=== PATIENT | female | born 1950 | race Caucasian/White ===

== ENCOUNTER 2016-06-11 13:07 | Observation (INO) | payer MEDICARE, BC ==
[2016-06-11] VITALS (8 sets, daily range): BP systolic 102–159; BP diastolic 54–84; PULSE 72–89; RESP 14–18; TEMP 96.7–98; O2SAT 95–100
[~2016-06-11] VITALS: Ht 157.5 cm; Wt 54.4 kg
[~2016-06-11 13:07] MED LIST: ASPI81TA82 PO; CALCCHW25 PO; DENO60P SC; HYDR15TA PO; LORTA5; PROM25SU8 PO; PROM25TA5 PO; REST0.05 OU; SYNT50TA PO
[2016-06-11] MEDS ORDERED: PLAQ200T PO (13:26)
[2016-06-11] MEDS ORDERED: ASPI81CH CHEW (13:26)
[2016-06-11] MEDS ORDERED: LEVO.05 PO (13:26)
[2016-06-11] MEDS ORDERED: SODIUM CHLORID 0.9% 500 ML INJ 500 ML IV ONE (13:45)
[2016-06-11] MEDS ORDERED: SODIUM CHLORIDE 0.9% FLUSH 5 ML FLUSH IVF PRN ×2 (13:45→15:00)
[2016-06-11 13:49] LABS: AUTOMATED NEUTROPHIL # 4.5 TH/MM3 (1.8-7.7); BASOPHIL # 0.1 TH/MM3 (0-0.2); BASOPHIL % 0.9 % (0.0-2.0); EOSINOPHIL % 0.5 % (0.0-4.0); HEMATOCRIT 41.6 % (35.0-46.0); HEMO FLAGS DIFF FINAL; LYMPHOCYTE # 1.8 TH/MM3 (1.0-4.8); MEAN CELL VOLUME 88.6 FL (80.0-100.0); MEAN CORPUSCULAR HEMOGLOBIN 29.8 PG (27.0-34.0); MEAN CORPUSCULAR HGB CONC 33.7 % (32.0-36.0); MONO % 5.4 % (0.0-8.0); NEUT % 66.2 % (16.0-70.0); PLATELET COUNT 183 TH/MM3 (150-450); RED BLOOD COUNT 4.69 MIL/MM3 (4.00-5.30); RED CELL DISTRIBUTION WIDTH 12.8 % (11.6-17.2); WHITE BLOOD COUNT 6.8 TH/MM3 (4.0-11.0)
[2016-06-11] MEDS: NITROGLYCERIN 0.4 MG SL 25 TABS/BTL SL SCH ×2 (13:49→13:55)
--- NOTE | 2016-06-11 13:50 | RADHPO ---
EXAM DATE/TIME: 06/11/2016 13:43 [place] COMPARISON: No previous studies available for comparison. INDICATIONS : Chest pains, bilateral arm tingling, today MEDICAL HISTORY : None. SURGICAL HISTORY : None. ENCOUNTER: Initial ACUITY: 1 day PAIN SCORE: 8/10 LOCATION: Bilateral chest FINDINGS: A single view of the chest demonstrates the lungs to be symmetrically aerated without evidence of mas s, infiltrate or effusion. The cardiomediastinal contours are unremarkable. Osseous structures are intact. CONCLUSION: No acute disease. Doug Villegas MD on June 11, 2016 at 13:48 Board Certified Radiologist. This report was verified electronically.
[2016-06-11 13:53] LABS: CHLORIDE 105 MEQ/L (98-107); POTASSIUM 4.3 MEQ/L (3.5-5.1); SODIUM (NA) 143 MEQ/L (136-145)
[2016-06-11 13:57] LABS: ANION GAP 8 MEQ/L (5-15); BLOOD UREA NITROGEN 15 MG/DL (7-18); MAGNESIUM 2.1 MG/DL (1.5-2.5)
[2016-06-11 14:00] LABS: ALT (GPT) 26 U/L (10-53); AST (GOT) 21 U/L (15-37); GLOMERULAR FILTRATION RATE 90 ML/MIN (>89)
[2016-06-11 14:02] LABS: TOTAL BILIRUBIN ADULT 0.3 MG/DL (0.2-1.0)
[2016-06-11 14:03] LABS: ALKALINE PHOSPHATASE 80 U/L (45-117)
[2016-06-11 14:22] LABS: APTT (PATIENT) 25.7 SEC (24.3-30.1); PROTHROMBIN TIME - PATIENT 10.6 SEC (9.8-11.6)
--- NOTE | 2016-06-11 14:26 | PD ---
HPI Chief Complaint: Chest Pain Time Seen by Provider: 13:36 Travel History International Travel<30 days: No Contact w/Intl Traveler<30days: No Traveled to known affect area: No History of Present Illness HPI To 65-year-old with a history of Sjogren's disease and hypothyroidism who presents to the emergency department after she woke up today with gradual onset of pressure-like chest discomfort and tightness in her chest. She states she's had similar symptoms one time about 5 years ago where she had a cardiac workup and was thought that she had esophageal spasms. She states since onset of symptoms been constant, gradually worsening, and associated with shortness of breath. She also states that she's noticed pain to needles and tingling in her arms, as well as a little bit around her mouth and in her legs. She's also had associated nausea. No aggravating or alleviating factors. No other complaints. History Past Medical History Narrative Medical Sjogren's, hypothyroidism Tetanus Vaccination: > 5 Years Influenza Vaccination: No Social History Alcohol Use: No Tobacco Use: No Allergies-Medications (Allergen,Severity, Reaction): Uncoded Allergies: NEUROXIN (Allergy, Mild, Hives, 06/11/16) Reported Meds & Prescriptions Reported Meds & Active Scripts Active Reported Synthroid (Levothyroxine Sodium) 50 Mcg Tab 50 Mcg PO DAILY Plaquenil (Hydroxychloroquine Sulfate) 200 Mg Tab 200 Mg PO BID Take with food Aspirin 81 Mg Chew 81 Mg CHEW ONCE Review of Systems Except as stated in HPI: all other systems reviewed are Neg Physical Exam Narrative GENERAL: Well-appearing 65-year-old woman, no acute distress. SKIN: Warm and dry. CARDIOVASCULAR: Regular rate and rhythm. No murmur appreciated. RESPIRATORY: No accessory muscle use. Clear to auscultation. Breath sounds equal bilaterally. GASTROINTESTINAL: Abdomen soft, non-tender, nondistended. Hepatic and splenic margins not palpable. MUSCULOSKELETAL: No obvious deformities. No edema. NEUROLOGICAL: Awake and alert. No obvious cranial nerve deficits. Motor grossly within normal limits. Normal speech. PSYCHIATRIC: Appropriate mood and affect; insight and judgment normal. Data Data Last Documented VS Vital Signs Date Time Temp Pulse Resp B/P Pulse Ox O2 Delivery O2 Flow Rate FiO2 06/11/16 13:58 97 Nasal Cannula 2 06/11/16 13:54 83 16 115/64 06/11/16 13:15 98.0 Orders Electrocardiogram (06/11/16 13:36) Complete Blood Count With Diff (06/11/16 13:36) Comprehensive Metabolic Panel (06/11/16 13:36) D-Dimer (06/11/16 13:36) Magnesium (Mg) (06/11/16 13:36) Prothrombin Time / Inr (Pt) (06/11/16 13:36) Act Partial Throm Time (Ptt) (06/11/16 13:36) Troponin I (06/11/16 13:36) Chest, Single Ap (06/11/16 13:36) Ecg Monitoring (06/11/16 13:36) Bilateral Bp Monitoring (06/11/16 13:36) Iv Access Insert/Monitor (06/11/16 13:36) Oximetry (06/11/16 13:36) Oxygen Administration (06/11/16 13:36) Sodium Chloride 0.9% Flush (Ns Flush) (06/11/16 13:45) Nitroglycerin Sl (Nitrostat Sl) (06/11/16 13:45) Sodium Chlorid 0.9% 500 Ml Inj (Ns 500 M (06/11/16 13:45) Nitroglycerin 2% Oint (Nitroglycerin 2% (06/11/16 14:45) Admit Order (Ed Use Only) (06/11/16 ) Labs Laboratory Tests Test 06/11/16 13:30 White Blood Count 6.8 TH/MM3 Red Blood Count 4.69 MIL/MM3 Hemoglobin 14.0 GM/DL Hematocrit 41.6 % Mean Corpuscular Volume 88.6 FL Mean Corpuscular Hemoglobin 29.8 PG Mean Corpuscular Hemoglobin 33.7 % Concent Red Cell Distribution Width 12.8 % Platelet Count 183 TH/MM3 Mean Platelet Volume 8.7 FL Neutrophils (%) (Auto) 66.2 % Lymphocytes (%) (Auto) 27.0 % Monocytes (%) (Auto) 5.4 % Eosinophils (%) (Auto) 0.5 % Basophils (%) (Auto) 0.9 % Neutrophils # (Auto) 4.5 TH/MM3 Lymphocytes # (Auto) 1.8 TH/MM3 Monocytes # (Auto) 0.4 TH/MM3 Eosinophils # (Auto) 0.0 TH/MM3 Basophils # (Auto) 0.1 TH/MM3 CBC Comment DIFF FINAL Differential Comment Prothrombin Time 10.6 SEC Prothromb Time International 1.0 RATIO Ratio Activated Partial 25.7 SEC Thromboplast Time D-Dimer Quantitative (PE/DVT) 0.29 MG/L FEU Sodium Level 143 MEQ/L Potassium Level 4.3 MEQ/L Chloride Level 105 MEQ/L Carbon Dioxide Level 30.0 MEQ/L Anion Gap 8 MEQ/L Blood Urea Nitrogen 15 MG/DL Creatinine 0.66 MG/DL Estimat Glomerular Filtration 90 ML/MIN Rate Random Glucose 91 MG/DL Calcium Level 9.0 MG/DL Magnesium Level 2.1 MG/DL Total Bilirubin 0.3 MG/DL Aspartate Amino Transf 21 U/L (AST/SGOT) Alanine Aminotransferase 26 U/L (ALT/SGPT) Alkaline Phosphatase 80 U/L Troponin I LESS THAN 0.02 NG/ML Total Protein 7.5 GM/DL Albumin 4.0 GM/DL [facility] Medical Decision Making Medical Screen Exam Complete: Yes Emergency Medical Condition: Yes Interpretation(s) My review of EKG: Normal sinus rhythm at a rate of 92, normal axis, normal intervals, no ischemia. LABS: CBC is unremarkable. CMP is unremarkable. Troponins negative. Coags unremarkable D-dimer 0.29 Chest x-ray: No acute disease. Differential Diagnosis Esophageal spasm, ACS, PE, anxiety, dissection, other Narrative Course Medical decision making 65-year-old woman with pressure-like chest discomfort, associated with shortness of breath, worsening throughout the day today. She looks overall well. She's had similar symptoms 5 or 6 years ago that she states orthopnea related to esophageal spasm with her Sjogren's disease. She has not really had similar symptoms since. She has some upper and lower extremity paresthesias are likely related to hyperventilation. She looks overall well. We'll plan on admission to the chest pain Center for further evaluation. Diagnosis Primary Impression: Chest pain Qualified Code: R07.89 - Other chest pain Jesus Vale MD Jun 11, 2016 14:26
[2016-06-11] MEDS ORDERED: NITROGLYCERIN 2% OINT 1 GM PACKET TOPICAL ONE (14:45)
[2016-06-11] MEDS ORDERED: MORPHINE SULFATE 4 MG/ML INJ IV PRN (15:00)
[2016-06-11] MEDS ORDERED: NITROGLYCERIN 0.4 MG SL 25 TABS/BTL SL PRN (15:00)
[2016-06-11] MEDS ORDERED: ACETAMINOPHEN/HYDROcodone 325 MG/7.5 MG TAB PO PRN (15:00)
[2016-06-11] MEDS ORDERED: ACETAMINOPHEN 500 MG CPLT PO PRN (15:00)
[2016-06-11] MEDS ORDERED: ONDANSETRON HCL 4 MG/2 ML VIAL IV PRN (15:00)
[2016-06-11] MEDS ORDERED: TEMAZEPAM 15 MG CAP PO PRN (15:00)
[2016-06-11 17:04] LABS: CREATINE KINASE 55 U/L (26-192)
[2016-06-11 19:36] LABS: CREATINE KINASE 53 U/L (26-192)
[2016-06-11] MEDS: HYDROXYCHLOROQUINE SULFATE 200 MG TAB PO SCH (20:06)
[2016-06-11] MEDS ORDERED: SODIUM CHLORIDE 0.9% FLUSH 5 ML FLUSH IVF SCH (21:00)
[2016-06-12 01:13] VITALS: BP 102/62; PULSE 71; RESP 14; TEMP 97.1; O2SAT 97
[2016-06-12 04:17] VITALS: BP 108/67; PULSE 78; RESP 20; TEMP 96.6; O2SAT 98
[2016-06-12] MEDS ORDERED: LEVOTHYROXINE SODIUM 50 MCG TAB PO SCH (06:00)
--- NOTE | 2016-06-12 07:11 | HHI.HP ---
[facility] Primary Care Physician Fabiana Almaraz MD Admission Diagnosis Chest Pain Diagnoses: (1) Chest pain Diagnosis: Principal (2) Sjogren's disease Diagnosis: Secondary (3) Hypothyroidism Diagnosis: Secondary Chief Complaint: Chest pain Travel History International Travel<30 Days: No Contact w/Intl Traveler <30 Da: No Traveled to Known Affected Are: No History of Present Illness 65-year-old female with known history of hypothyroidism, sjogren's syndrome who presented to hospital because acute onset chest pain. Patient states that she normal state of health yesterday until she woke up at approximate 5:30. She states that she was having a funny sensation and some mild dizziness. She indicates that that is something that she is with on a chronic basis. She got up and did her normal activities had her Coffee in the morning and then subsequently after that approximately at 11 AM she developed a chest discomfort which she describes as a pressure, tightness as if someone was stepping on her chest. She did take baby aspirin at home. She laid down to see if the pain would resolve however it did not, the pain progressively got worse so she came to the hospital for evaluation. Patient states that she was emergency department and she was giving to nitroglycerin and started on Nitropaste with complete resolution of her chest discomfort at approximately 1 PM. Patient has been a symptomatic since then. Patient denies any radiation to the neck, back, shoulder. She did have paresthesia in the bilateral upper extremities. She has mild nausea without any vomiting. Denied any diaphoresis. She states that she felt as if she could not get a full breath when she took a deep breath. Patient states that she has undergone exercise stress test 5 years ago in [place] and it was negative. She is told that it was related to esophageal spasm from her Sjogren's disease. It was recommended by the ER physician the patient be observed in the chest pain center for further evaluation and management. Review of Systems Constitutional: DENIES: Diaphoretic episodes, Fatigue, Fever, Weight gain, Weight loss, Chills, Dizziness, Change in appetite, Night Sweats Eyes: DENIES: Blurred vision, Diplopia, Eye inflammation, Eye pain, Vision loss , Double Vision Ears, nose, mouth, throat: COMPLAINS OF: Hearing loss, DENIES: Vertigo, Nasal discharge, Throat pain, Ear Pain, Running Nose, Sinus Pain Respiratory: COMPLAINS OF: Shortness of breath, DENIES: Apneas, Cough, Snoring , Wheezing, Hemoptysis, Sputum production Cardiovascular: COMPLAINS OF: Chest pain, DENIES: Palpitations, Syncope, Dyspnea on Exertion, Lower Extremity Edema, Orthopnea Gastrointestinal: DENIES: Abdominal pain, Black stools, Bloody stools, Constipation, Diarrhea, Nausea, Vomiting, Difficulty Swallowing, Anorexia Neurologic: DENIES: Abnormal gait, Headache, Localized weakness, Paresthesias, Seizures, Speech Problems, Tremor, Poor Balance Psychiatric: DENIES: Anxiety, Confusion, Mood changes, Depression Past Family Social History Past Medical History Hypothyroidism Sjogren's disease Lichen planus condition of the scalp Past Surgical History Tonsillectomy Cholecystectomy Hysterectomy Appendectomy Stapenectomy right ear 2 Reported Medications Reported Meds & Active Scripts Active Reported Synthroid (Levothyroxine Sodium) 50 Mcg Tab 50 Mcg PO DAILY Plaquenil (Hydroxychloroquine Sulfate) 200 Mg Tab 200 Mg PO BID Take with food Aspirin 81 Mg Chew 81 Mg CHEW ONCE Allergies: Uncoded Allergies: NEUROXIN (Allergy, Mild, Hives, 06/11/16) Family History Reviewed is significant for mother having heart disease, multiple myocardial infarctions. Father from pancreatic cancer Social History Patient denies any tobacco, alcohol or illicit drugs Physical Exam Vital Signs Vital Signs Date Time Temp Pulse Resp B/P Pulse Ox O2 Delivery O2 Flow Rate FiO2 06/12/16 04:17 96.6 78 20 108/67 98 06/12/16 01:13 97.1 71 14 102/62 97 06/11/16 20:17 96.7 72 14 118/77 99 06/11/16 19:27 99 21 06/11/16 16:00 97.4 74 16 102/72 100 06/11/16 14:49 83 16 119/54 96 Nasal Cannula 2 06/11/16 13:58 97 Nasal Cannula 2 06/11/16 13:54 83 16 115/64 95 Room Air 06/11/16 13:54 16 06/11/16 13:53 82 124/64 115/64 06/11/16 13:43 18 100 Room Air 06/11/16 13:19 18 100 Room Air 06/11/16 13:15 98.0 89 18 159/84 100 Physical Exam GENERAL: Well-developed, well-nourished, in no acute distress. alert and orientated HEENT: Head is normocephalic without any lesions or masses noted. Facial features are symmetric. Eyes: Pupils equal round reactive to light. Extraocular muscles are intact. Conjunctivae were clear. Oropharyngeal: Pharynx without any erythema edema. Tongue is midline without deviation. Buccal mucosa is moist without any masses or lesions NECK: Supple without any masses. Trachea midline no deviation. No JVD, no bruits are appreciated CARDIAC: Regular rhythm, regular rate. S1/S2 are heard. No murmurs gallops or rubs. LUNGS: Clear to auscultation bilaterally. No wheeze, rhonchi or rales. No use of accessory muscles on inspiration or expiration. ABDOMEN: Soft, nontender. Nondistended. Bowel sounds heard in all 4 quadrants. No organomegaly or masses. Negative rebound, negative guarding EXTREMITIES: No edema, pulses are equal bilaterally. No cyanosis or clubbing NEUROLOGY: Mood and affect appear appropriate. Cranial nerves II through XII grossly intact. Muscle strength 5/5 in upper and lower extremities bilaterally. Deep tendon reflexes are 2+ in upper and lower extremities bilaterally. Laboratory Laboratory Tests Test 06/11/16 06/11/16 06/11/16 13:30 16:25 19:08 White Blood Count 6.8 Red Blood Count 4.69 Hemoglobin 14.0 Hematocrit 41.6 Mean Corpuscular Volume 88.6 Mean Corpuscular Hemoglobin 29.8 Mean Corpuscular Hemoglobin 33.7 Concent Red Cell Distribution Width 12.8 Platelet Count 183 Mean Platelet Volume 8.7 Neutrophils (%) (Auto) 66.2 Lymphocytes (%) (Auto) 27.0 Monocytes (%) (Auto) 5.4 Eosinophils (%) (Auto) 0.5 Basophils (%) (Auto) 0.9 Neutrophils # (Auto) 4.5 Lymphocytes # (Auto) 1.8 Monocytes # (Auto) 0.4 Eosinophils # (Auto) 0.0 Basophils # (Auto) 0.1 CBC Comment DIFF FINAL Differential Comment Prothrombin Time 10.6 Prothromb Time International 1.0 Ratio Activated Partial 25.7 Thromboplast Time D-Dimer Quantitative (PE/DVT) 0.29 Sodium Level 143 Potassium Level 4.3 Chloride Level 105 Carbon Dioxide Level 30.0 Anion Gap 8 Blood Urea Nitrogen 15 Creatinine 0.66 Estimat Glomerular Filtration 90 Rate Random Glucose 91 Calcium Level 9.0 Magnesium Level 2.1 Total Bilirubin 0.3 Aspartate Amino Transf 21 (AST/SGOT) Alanine Aminotransferase 26 (ALT/SGPT) Alkaline Phosphatase 80 Troponin I LESS THAN 0.02 LESS THAN 0.02 LESS THAN 0.02 Total Protein 7.5 Albumin 4.0 Total Creatine Kinase 55 53 Result Diagram: 06/11/16 1330 06/11/16 1330 Imaging Last Impressions Chest X-Ray 06/11/16 1336 Signed Impressions: Service Date/Time: Saturday, June 11, 2016 13:43 - CONCLUSION: No acute disease. Doug Villegas MD Assessment and Plan Assessment and Plan Chest pain Patient with increased risk factors include age, hyperlipidemia Serial cardiac enzymes were performed and reviewed by myself which showed no elevation and ruled out acute coronary event Serial EKGs were performed and reviewed by myself which indicate normal sinus rhythm without any changes Exercise stress testwas negative for any underlying ischemia Continue aspirin and nitroglycerin as needed Sjogren's syndrome Continue home medications Hypothyroidism Continue replacement therapy DVT prevention Sequential compression devices Written by Cory Arceo PA-C, acting as scribe for Dr. Boggs on 06/12/16 at 1218. The documentation accurately reflects the work and decisions performed face-to- face by Dr. Boggs on 06/12/16 at 1218. Discharge disposition Discharge home in stable condition Activity: Ad froy. Diet: Healthy heart diet Medications per medication reconciliation Follow-up primary medical doctor in one week Problem Qualifiers (1) Chest pain: Qualified Code: R07.89 - Other chest pain (2) Sjogren's disease: Qualified Code: M35.00 - Sjogren's syndrome, with unspecified organ involvement (3) Hypothyroidism: Qualified Code: E03.9 - Hypothyroidism, unspecified type Cory Arceo Jun 12, 2016 07:11
[2016-06-12] MEDS: HYDROXYCHLOROQUINE SULFATE 200 MG TAB PO SCH (07:30)
[2016-06-12 07:40] VITALS: O2SAT 98
[2016-06-12 08:00] VITALS: BP 109/61; PULSE 74; RESP 16; TEMP 97.1; O2SAT 100
[2016-06-12] MEDS ORDERED: ASPIRIN 325 MG TAB PO SCH (09:00)
[2016-06-12 12:00] VITALS: BP 105/62; PULSE 71; RESP 16; TEMP 96.8; O2SAT 100
--- NOTE | 2016-06-12 12:20 | HHI.DCPOC ---
Discharge Care Plan Diagnosis: (1) Chest pain Goals to Promote Your Health * To prevent worsening of your condition and complications * To maintain your health at the optimal level Directions to Meet Your Goals Take your medications as prescribed Follow your dietary instruction Follow activity as directed Keep your appointments as scheduled Take your immunizations and boosters as scheduled If your symptoms worsen call your PCP, if no PCP go to Urgent Care Center or Emergency Room Smoking is Dangerous to Your Health. Avoid second hand smoke Call the 24-hour hour crisis hotline for domestic abuse at Cory Arceo Jun 12, 2016 12:20
--- NOTE | 2016-06-12 13:03 | EKG ---
Date Performed: 06/11/2016 Time Performed: 13:20:14 PTAGE: 65 years EKG: Sinus rhythm Since previous tracing, no significant change noted Normal ECG NO PREVIOUS TRACING DOCTOR: Marielena Childers Interpretating Date/Time 06/12/2016 13:02:33
--- NOTE | 2016-06-12 13:04 | EKG ---
Date Performed: 06/11/2016 Time Performed: 19:06:18 PTAGE: 65 years EKG: Sinus rhythm . Low QRS voltages in precordial leads Since previous tracing, no significant change noted Borderline ECG PREVIOUS TRACING : 06/11/2016 16.27 DOCTOR: Marielena Childers Interpretating Date/Time 06/12/2016 13:03:20
--- NOTE | 2016-06-12 13:04 | EKG ---
Date Performed: 06/11/2016 Time Performed: 16:27:58 PTAGE: 65 years EKG: Sinus rhythm . Low QRS voltages in precordial leads Since previous tracing, no significant change noted Borderline ECG PREVIOUS TRACING : 06/11/2016 13.20 DOCTOR: Marielena Childers Interpretating Date/Time 06/12/2016 13:02:56
--- NOTE | 2016-06-13 11:56 | TR ---
Date Performed: 06/12/2016 Time Performed: 10:41:35 DOCTOR: Juice Gan DRUG LIST: CLINICAL HISTORY: REASON FOR TEST: Chest pain. REASON FOR ENDING: Completed Protocol OBSERVATION: Arrhythmia: None Chest Pain: None CONCLUSION: Patient tolerated GREGORIO protocol with Total Exercise Time=8:01 Maximum VD=299 % Max HR Achieved=88.0% Maximum JA=114/80, Testinf stopped secondary to goals acheicved, Patient reached ta rget HR. Good exercise tolerance. Rare PACs were noted. During peak exercise, patient was asymptomat ic, quick upsloping ST segments. HR and BP appropriate response to exercise. Recovery period, patient was asymptomatic, HR and BP returned to baseline COMMENTS: CONCLUSION: Normal exercise treadmill. No evidence of ischemia.
== END 2016-06-12 12:35 | disposition home or self-care (01) ==
LOC: PHED 13:07 → PHEDA 14:37 → PH3B 15:56
PROVIDERS: ADMIT Family Medicine; ATTEND Family Medicine
DX: R07.89 Other chest pain (principal); M35.00 Sjogren syndrome, unspecified; K22.4 Dyskinesia of esophagus; E03.9 Hypothyroidism, unspecified; R94.31 Abnormal electrocardiogram [ECG] [EKG]
CPT/HCPCS: 71010; 80053; 82550; 83735; 84484; 85025; 85379; 85610; 85730; 93005; 93017; 96360; 99285; G0378; J7040